=== PATIENT | female | born 1995 ===

== ENCOUNTER → 2018-04-03 | Outpatient (CLI) | payer BC, OTHER ==
--- NOTE | 2018-04-03 15:41 | RADIOLOGY IMAGING REPORT ---
FACILITY: [facility] [place] PATIENT NAME: EZIO JAUREGUI : [id number] MR: [id number] V: [id number] EXAM DATE: [id number] ORDERING PHYSICIAN: EMERY FENG TECHNOLOGIST: Alex Guy RDMS, [place] PROCEDURE:US RIGHT BREAST COMPARISON:None. 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 The patient states she feels the fibroadenoma has enlarged. TECHNIQUE: Ultrasound imaging of the Right breast was performed in the 11 o'clock position overlying the fibroadenoma. FINDINGS: Reidentified in the right breast 11 o'clock position, 4 CFN, is a solid lobulated biopsy proven fibroadenoma with a metallic biopsy clip within it currently measuring 2.3 x 3 x 1.2cm. Previously the fibroadenoma measured 3.3 x 1.5 x 3.6cm. No internal blood flow is seen. DIAGNOSTIC CATEGORY 2--BENIGN FINDING. RECOMMENDATIONS: CLINICAL Follow up. IMPRESSION: BIRADS 2: Benign finding. 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 This mass can be followed clinically. Dictated by: Nicolas Diaz M.D. on 04/03/2018 at 14:04 Transcribed by: MARIBEL on 04/03/2018 at 15:05 Approved by: Nicolas Diaz M.D. on 04/03/2018 at 15:41 [facility]
== END ==
LOC: US 03-22 01:01
PROVIDERS: ATTEND Nurse Practitioner Women's Health
DX: N63.11 Unspecified lump in the right breast, upper outer quadrant (principal)